=== PATIENT | female | born 1990 | race Two or more races ===

== ENCOUNTER 2020-03-07 05:04 | Inpatient (IN) | payer BC, MEDICAID ==
[2020-03-02 11:27] LABS: ABSOLUTE EOSINOPHILS # (AUTO) 0.1 10^3/uL (0.0-0.6); ABSOLUTE LYMPHOCYTES (AUTO) 1.4 10^3/uL (0.5-4.7); ABSOLUTE MONOCYTES (AUTO) 0.5 10^3/uL (0.1-1.4); ABSOLUTE NEUT (AUTO) 4.5 10^3/uL (1.7-8.2); BASOPHILS % (AUTO) 0.6 % (0-2); EOSINOPHILS % (AUTO) 1.3 % (0-6); HEMATOCRIT 34.1 % (36.0-47.0); HEMOGLOBIN 11.7 g/dL (12.0-15.5); LYMPHOCYTES % (AUTO) 21.5 % (13-45); MEAN CORPUSCULAR HEMOGLOBIN 30.6 pg (27.0-33.4); MEAN CORPUSCULAR HGB CONC 34.5 g/dL (32.0-36.0); MEAN CORPUSCULAR VOLUME 89 fl (80-97); PLATELET COUNT 237 10^3/uL (150-450); RED BLOOD COUNT 3.84 10^6/uL (3.72-5.28); RED CELL DISTRIBUTION WIDTH 14.6 % (11.5-14.0); SEGMENTED NEUTROPHILS % (AUTO) 69.6 % (42-78); TOTAL CELLS COUNTED % (AUTO) 100 %; WHITE BLOOD COUNT 6.4 10^3/uL (4.0-10.5)
[2020-03-02 11:50] LABS: APPEARANCE,URINE SLIGHTLY-CLOUDY; BILIRUBIN,URINE NEGATIVE (NEGATIVE); COLOR,URINE YELLOW; GLUCOSE, URINE NEGATIVE (NEGATIVE); KETONES,URINE NEGATIVE (NEGATIVE); LEUKOCYTE ESTERASE,URINE TRACE (NEGATIVE); NITRITE,URINE NEGATIVE (NEGATIVE); PROTEIN,URINE NEGATIVE (NEGATIVE); URINE SPECIFIC GRAVITY 1.021; UROBILINOGEN,URINE NEGATIVE mg/dL (<2.0)
[2020-03-02 12:04] LABS: URINE AMPHETAMINES SCREEN NEGATIVE; URINE BARBITURATES SCREEN NEGATIVE; URINE BENZODIAZEPINES SCREEN NEGATIVE; URINE COCAINE SCREEN NEGATIVE; URINE MARIJUANA (THC) SCREEN NEGATIVE; URINE METHADONE SCREEN NEGATIVE; URINE PHENCYCLIDINE SCREEN NEGATIVE
[~2020-03-07 05:04] MED LIST: CEFAZOLIN 2 GM/D5W RTU 2 GM/50 ML RTUPB IV PRN; LIDOCAINE 0.5% INJ-PF (5 MG/ML) 50 ML SDV SUBCUT PRN; RINGERS SOLUTION,LACTATED 1,500 ML IV PRN
[2020-03-07] MEDS: LACTATED RINGERS 1000 ML IV PRN ×2 (07:38→15:00)
[2020-03-07] MEDS ORDERED: NORMAL SALINE 1000 ML 1,000 ML IV ONE (08:00)
[2020-03-07] MEDS ORDERED: RINGERS SOLUTION,LACTATED 500 ML IV ONE (08:00)
[2020-03-07] MEDS ORDERED: FENTANYL CITRATE INJ/PF 100 MCG/2 ML AMPUL ONE (08:31)
[2020-03-07] MEDS ORDERED: OXYTOCIN 10 UNIT/ML VIAL ONE (08:31)
[2020-03-07] MEDS ORDERED: KETOROLAC TROMETHAMINE 60 MG/2 ML SDV ONE (08:31)
[2020-03-07] MEDS ORDERED: OXYTOCIN/0.9 % SODIUM CHLORIDE 30 UNIT/500 ML RTUINJ ONE (08:31)
[2020-03-07] MEDS ORDERED: ONDANSETRON HCL INJ/PF 4 MG/2 ML SDV ONE (08:32)
[2020-03-07] MEDS ORDERED: ACETAMINOPHEN 1,000 MG/100 ML RTUPB IV ONE (08:32)
[2020-03-07] MEDS ORDERED: BUPIVACAINE HCL 0.25 % INJ/PF (2.5 MG/1 ML) 30 ML VIAL ONE (08:41)
[2020-03-07] MEDS ORDERED: EPHEDRINE SULFATE INJ 50 MG/1 ML AMPULE ONE (09:17)
[2020-03-07] MEDS ORDERED: MORPHINE SULFATE 10 MG/ML INJ IV PRN (09:30)
[2020-03-07] MEDS ORDERED: DIPHENHYDRAMINE HCL 50 MG/ML VIAL IV PRN (09:30)
[2020-03-07] MEDS ORDERED: MEPERIDINE HCL/PF INJ 25 MG/1 ML DISP.SYRIN IV PRN (09:30)
[2020-03-07] MEDS ORDERED: PROMETHAZINE HCL INJ 25 MG/1 ML VIAL IV PRN ×2 (09:30→09:57)
[2020-03-07] MEDS ORDERED: FENTANYL CITRATE INJ/PF 100 MCG/2 ML AMPUL IV PRN ×3 (09:30)
[2020-03-07] MEDS ORDERED: MEASLES,MUMPS&RUBELLA VACC/PF 0.5 ML VIAL SUBCUT PRN (09:57)
[2020-03-07] MEDS ORDERED: ACETAMINOPHEN 1,000 MG/100 ML RTUPB IV PRN (09:57)
[2020-03-07] MEDS ORDERED: DIPH/PERTUSS(ACELL)/TETANUS VAC/PF 0.5 ML SYR (>=10YO) IM PRN (09:57)
[2020-03-07] MEDS ORDERED: ACETAMINOPHEN 325 MG TABLET PO PRN (09:57)
[2020-03-07] MEDS ORDERED: SIMETHICONE 80 MG TAB.CHEW PO PRN (09:57)
[2020-03-07] MEDS ORDERED: OXYTOCIN/0.9 % SODIUM CHLORIDE 30 UNIT/500 ML RTUINJ IV PRN (09:57)
[2020-03-07] MEDS ORDERED: RINGERS SOLUTION,LACTATED 1,000 ML IV PRN (09:57)
[2020-03-07] MEDS ORDERED: OXYCODONE-ACETAMINOPHEN 5-325 MG TABLET PO PRN (09:57)
--- NOTE | 2020-03-07 10:03 | Operative Report ---
Operative Report DATE OF SURGERY: 03/07/20 PREOPERATIVE DIAGNOSIS: Scheduled repeat with tubal ligation using Fi lshie clips POSTOPERATIVE DIAGNOSIS: Same OPERATION: Repeat via low transverse uterine incision and tubal ligation using Filshie clips SURGEON: DELL FIERRO ANESTHESIA: Spinal TISSUE REMOVED OR ALTERED: Placenta and fallopian tubes COMPLICATIONS: None ESTIMATED BLOOD LOSS: 400 cc INTRAOPERATIVE FINDINGS: Viable crying at delivery. Normal uterus tubes and ovaries. PROCEDURE: Patient was taken to the OR and placed in supine position after her spinal anesthesia. She is prepared and draped in sterile fashion. Goldstein was placed for drainage of the bladder. Low transverse incision was made and carried down the level of the fascia. The fascial incision was made with knife and extended bilaterally with curved West scissors. The fascia was off the rectus muscles using sharp and blunt dissection. The rectus muscles are in the midline. The peritoneum was entered without incident. Bladder blade was placed in uterine segment was identified. A low transverse incision was made creating a bladder flap. Bladder blade was placed low transverse uterine incision was made with the knife and extended with fingertips. The baby was delivered with some fundal pressure. Mouth and nose were suctioned free. The cord is doubly clamped and cut. Baby is passed off to the measurement superintendent in attendance. The placenta was manually extracted with trailing membranes. The uterus was externalized wrapped in a moist lap sponge. Uterine contents wiped free. Uterus was closed with a running locking layer of 0 chromic suture using the second layer to imbricate the first completing a double layer closure of the uterus. The serosa was closed with a running 2-0 chromic stitch. Each fallopian tube was identified by its fimbriated end and then a Filshie clip was placed across the mid isthmic portion of each tube. The pelvis was irrigated and suctioned free of fluid the uterus was replaced in the abdomen. The abdominal wall peritoneum was closed with running 2-0 chromic stitch. Fascia was closed with a running 0 Vicryl in 2 segments. Kaycee's layer was brought together with 0 plain gut stitch and the skin was closed with running subcuticular 4-0 undyed Vicryl stitch. The wound was dressed mother and baby did well.
--- NOTE | 2020-03-07 10:56 | Warning Signs in Babies ---
VOD Warning Signs Datetime Report Generated by [facility]: 03/07/2020 10:56 VOD#608 -Warning Signs in Babies: Needs to be viewed. (03/07/2020 09:29:Shena Genao RN)
[2020-03-07] MEDS ORDERED: OXYCODONE-ACETAMINOPHEN 5-325 MG TABLET ONE (11:15)
[2020-03-07] MEDS: OXYCODONE-ACETAMINOPHEN 5-325 MG TABLET PO PRN ×2 (11:17→20:52)
--- NOTE | 2020-03-07 12:16 | Delivery Summary ---
Del Sum A-C Datetime Report Generated by [facility]: 03/07/2020 12:16 DELIVERY PERSONNEL DELIVERY PERSONNEL: [id number] Delivery Doctor:: Masoud Novak MD SCREW MACHINE SET UP OPERATOR TOOL:: Marilyn Roth CRNA Certified Bench Jeweler Technician:: Shena Genao RN Nursery Nurse:: Alexandria Vail RN Nursery Nurse:: Lesa Santoro RN Supervisor Electrolytic Tinning/VOUCHER CLERK: Shani Laguerre CST Supervisor Electrolytic Tinning/VOUCHER CLERK: Sandra Baeza, JACQUARD LOOM WEAVER MATERNAL INFORMATION Delivery Anesthesia: Spinal Medications After Delivery: Pitocin 30 Units in 500ml NS/D5W; Pitocin Drip 20 Units/1000ml NSS Maternal Complications: None LABOR SUMMARY EDC: 03/12/2020 00:00 Attempted: No Labor Anesthesia: None LABOR INFORMATION Reason for Induction: Not Applicable Other Ripening Agents: Oxytocin: N/A Group B Beta Strep: Negative Steroids Given: None Reason Steroids Not Administered: Not Applicable Other Reason Not Administered: MEMBRANES Membranes Rupture Method: Artificial Rupture of Membranes: 03/07/2020 09:16 Length of Rupture (hr): 0.02 Amniotic Fluid Color: Clear Amniotic Fluid Amount: Moderate STAGES OF LABOR Stage 3 hr: 0 Stage 3 min: 0 VAGINAL DELIVERY Episiotomy: None Laceration #1: None Laceration Extension #1: N/A Sponge Count Correct: N/A Sharps Count Correct: N/A CSECTION DELIVERY Primary Indication: Repeat Elective Other Primary Indication: with BTL CSection Urgency: Scheduled CSection Incidence: Repeat Labor: N/A Elective: Elective CSection Incision: Lower Uterine Transverse Other Sterilization Procedure: Foshie Clips BABY A INFORMATION Infant Delivery Date/Time: 03/07/2020 09:17 Method of Delivery: Nurse Controlled Delivery: No Born in Route : No : N/A Forceps: N/A Vacuum Extraction: N/A Shoulder Dystocia : No PRESENTATION/POSITION BABY A Presentation: Cephalic Cephalic Presentation: Vertex Breech Presentation: N/A PLACENTA INFORMATION BABY A Placenta Delivery Time : 03/07/2020 09:17 Placenta Method of Delivery: Manual Removal Placenta Status: Delivered SCORES BABY A Heart Rate 1 min: >100 bpm Resp Effort 1 min: Good Cry Reflex Irritability 1 min: Cough or Sneeze or Pulls Away Muscle Tone 1 min: Active Motion Color 1 min: Blue/Pale SCORE 1 MIN: 8 Heart Rate 5 min: >100 bpm Resp Effort 5 min: Good Cry Reflex Irritability 5 min: Cough or Sneeze or Pulls Away Muscle Tone 5 min: Active Motion Color 5 min: Body [place], Extremities Blue SCORE 5 MIN: 9 INFORMATION BABY A Gestational Age at Delivery: 39.2 Gestational Status: Full Term- 39- 40.6 Weeks Outcome : Liveborn Condition : Stable Sex: Female IDENTIFICATION BABY A Infant Verification Date/Time: 03/07/2020 09:29 ID Band Number: [id number] Mother's Name Verified: Yes RN Verifying Infant: Amber RN Additional Verifying Personnel: CHARLES Núñez WEIGHT/LENGTH BABY A Infant Birthweight (gm): 3530 Weight (lb): 7 Weight (oz): 13 Length (in): 18.50 Infant Length (cm): 46.99 CORD INFORMATION BABY A No. Cord Vessels: 3 Nuchal Cord : Around Neck x1, Tight Cord Blood Taken: Yes-For Storage (Mom's Blood type +) Suction: None ASSESSMENT BABY A Skin to Skin: Yes Skin to Skin Time (min): 20 BABY B INFORMATION : N/A Forceps : N/A Vacuum Extraction: N/A
--- NOTE | 2020-03-07 12:16 | Birth Certificate Data ---
Cert Data Datetime Report Generated by [facility]: 03/07/2020 12:16 CERTIFICATE DATA 47a. Care: Yes (03/07/2020 11:25:Rosaura Beltrán RN) 47b. Date of First Visit: 08/23/2019 00:00 (03/07/2020 11:25:Rosaura Beltrán RN) 47c. Date of Last Visit: 03/02/2020 00:00 (03/07/2020 11:25:Rosaura Beltrán RN) 47d. Number of Visits: 11 (03/07/2020 11:25:Rosaura Beltrán RN) 48a. Number of Prev Live Births: 2 (03/07/2020 11:25:Rosaura Beltrán RN) 48b. Now Livin (03/07/2020 11:25:Rosaura Beltrán RN) 48c. Live Births Now : 0 (03/07/2020 11:25:QS system process) 48d. Date of Last Live : 07/20/2013 00:00 (03/07/2020 11:25:Rosaura Beltrán RN) 48e. Losses: 0 (03/07/2020 11:25:Rosaura Beltrán RN) RISK FACTORS IN THIS 49a. Diabetes: No (03/07/2020 11:25:Rosaura Beltrán RN) 49b. Hypertension: No (03/07/2020 11:25:Rosaura Beltrán RN) 49c. Previous Births: 0 (03/07/2020 11:25:Rosaura Beltrán RN) 49d. Stillborns: No (03/07/2020 11:25:Rosaura Beltrán RN) 49d. IUGR: No (03/07/2020 11:25:Rosaura Beltrán RN) 49e. Infertility Treatment: No (03/07/2020 11:25:Rosaura Beltrán RN) 49f. Previous Cesareans: 2 (03/07/2020 11:25:Rosaura Beltrán RN) Mother's Height 50b. Height Inches: 62 (03/07/2020 06:22:QS system process) Mother's Weight 51a. Pre- Weight (lbs): 168 (03/07/2020 11:25:Rosaura Beltrán RN) 51b. Weight at Delivery (lbs): 196 (03/07/2020 06:22:QS system process) 52. Dt Last Normal Menses Began: 06/06/2019 00:00 (03/07/2020 11:25:Rosaura Beltrán RN) Infections Present/Treated 53a. Gonorrhea: No (03/07/2020 11:25:Rosaura Beltrán RN) 53b. Syphilis: No (03/07/2020 11:25:Rosaura Beltrán RN) 53c. Chlamydia: No (03/07/2020 11:25:Rosaura Beltrán RN) 53d. Hepatitis B: No (03/07/2020 11:25:Rosaura Beltrán RN) Results this Hospital Visit: Negative (03/07/2020 11:25:Rosaura Beltrán RN) 53h. Mother Tested for HBsAG: Yes (03/07/2020 11:25:Rosaura Beltrán RN) 53i. Date Tested: 08/23/2019 00:00 (03/07/2020 11:25:Rosaura Beltrán RN) 53j. Test Result: Negative (03/07/2020 11:25:Rosaura Beltrán RN) Obstetric Procedures 54a, b, c. Obstetric Procedures: Ultrasound (03/07/2020 11:25:Rosaura Beltrán RN) Cigarette Smoking 55a. 3 Months Before Preg - Ci (03/07/2020 11:25:Rosaura Beltrán RN) 55a. Packs: 0 (03/07/2020 11:25:Rosaura Beltrán RN) 55b. 1st Trimester of Preg- Ci (03/07/2020 11:25:Rosaura Beltrán RN) 55b. Packs: 0 (03/07/2020 11:25:Rosaura Beltrán RN) 55c. 2nd Trimester of Preg- Ci (03/07/2020 11:25:Rosaura Beltrán RN) 55c. Packs: 0 (03/07/2020 11:25:Rosaura Beltrán RN) 55d. 3rd Trimester of Preg- Ci (03/07/2020 11:25:Rosaura Beltrán RN) 55d. Packs: 0 (03/07/2020 11:25:Rosaura Beltrán RN) Onset of Labor 56a. PROM >12 Hrs: 0.02 (03/07/2020 09:29:QS system process) 57a. Induction of Labor: N/A (03/07/2020 11:25:Rosaura Beltrán RN) 57a. Induction of Labor: (03/07/2020 11:25:Rosaura Beltrán RN) 57b. Augmentation of Labor: None (03/07/2020 11:25:Rosaura Beltrán RN) 57c. Non-Vertex Presentation A: Vertex (03/07/2020 11:25:Rosaura Beltrán RN) 57d. Steroids - Lung Mat: None (03/07/2020 11:25:Rosaura Beltrán RN) 57d. Steroids - Lung Mat: Not Applicable (03/07/2020 09:29:Shena Genao RN) 57d. Steroids - Lung Mat: (03/07/2020 11:25:Rosaura Beltrán RN) 57e. Antibiotics During Labor: No (03/07/2020 11:25:Rosaura Beltrán RN) 57g. Moderate/Heavy Meconium: Clear (03/07/2020 11:25:Rosaura Beltrán RN) 57h. Intolerance of Labor: Repeat Elective (03/07/2020 11:25:Rosaura Beltrán RN) : with BTL (03/07/2020 09:29:Shena Genao RN) 57i. Epidural/Spinal Anesthesia: None (03/07/2020 11:25:Rosaura Beltrán RN) Method of Delivery 58a. Forceps - Unsuccessful A: N/A (03/07/2020 11:25:Rosaura Beltrán RN) 58a. Forceps - Unsuccessful B: N/A (03/07/2020 11:25:Rosaura Beltrán RN) 58b. Vacuum - Unsuccessful A: N/A (03/07/2020 11:25:Rosaura Beltrán RN) 58b. Vacuum - Unsuccessful B : N/A (03/07/2020 11:25:Rosaura Beltrán RN) 58c. Presentation at 58c. Presentation at - A : Vertex (03/07/2020 11:25:Rosaura Beltrán RN) 58c. Presentation at - A : N/A (03/07/2020 11:25:Rosaura Beltrán RN) 58c. Presentation at - A : Cephalic (03/07/2020 11:25:Rosaura Beltrán RN) Final Route and Method of Del 58d. Baby A Route/Delivery: (03/07/2020 11:25:Rosaura Beltrán RN) 58e. Trial of Labor Attempted: No (03/07/2020 09:29:Shena Genao RN) 58e. Trial of Labor Attempted A: N/A (03/07/2020 11:25:Rosaura Beltrán RN) 58e. Trial of Labor Attempted B: N/A (03/07/2020 11:25:Rosaura Beltrán RN) Maternal Morbidity 59b. 3rd or 4th Degree Lacs: None (03/07/2020 11:25:Rosaura Beltrán RN) 59b. 3rd or 4th Degree Lacs: N/A (03/07/2020 11:25:Rosaura Beltrán RN) Birthweight Baby A: 3530 (03/07/2020 09:29:Shena Genao RN) 60a. Pounds : 7 (03/07/2020 09:29:QS system process) 60b. Ounces: 13 (03/07/2020 09:29:QS system process) 61. GA at Delivery Baby A: 39.2 (03/07/2020 09:29:Shena Genao RN) : Full Term- 39- 40.6 Weeks (03/07/2020 09:29:QS system process) 62a. 5 Minute Baby A: 9 (03/07/2020 09:29:QS system process)
[2020-03-07] MEDS: HYDROMORPHONE HCL INJ/PF 2 MG/ML AMPULE IV PRN ×3 (12:44→23:26)
[2020-03-07] MEDS: PRENATAL VITAMIN W DHA CAPSULE PO SCH (16:51)
[2020-03-07] MEDS: DOCUSATE SODIUM 100 MG CAPSULE PO SCH ×2 (16:51→20:53)
[2020-03-07] MEDS: KETOROLAC TROMETHAMINE INJ/PF 30 MG/1 ML SDV IV SCH (20:52)
[2020-03-08] MEDS: KETOROLAC TROMETHAMINE INJ/PF 30 MG/1 ML SDV IV SCH ×2 (01:54→09:58)
[2020-03-08] MEDS: OXYCODONE-ACETAMINOPHEN 5-325 MG TABLET PO PRN ×4 (01:55→22:17)
[2020-03-08 07:25] LABS: HEMATOCRIT 31.8 % (36.0-47.0); HEMOGLOBIN 10.9 g/dL (12.0-15.5); MEAN CORPUSCULAR HEMOGLOBIN 30.3 pg (27.0-33.4); MEAN CORPUSCULAR HGB CONC 34.4 g/dL (32.0-36.0); MEAN CORPUSCULAR VOLUME 88 fl (80-97); PLATELET COUNT 202 10^3/uL (150-450); RED BLOOD COUNT 3.62 10^6/uL (3.72-5.28); WHITE BLOOD COUNT 7.3 10^3/uL (4.0-10.5)
[2020-03-08] MEDS: PRENATAL VITAMIN W DHA CAPSULE PO SCH (09:58)
[2020-03-08] MEDS: DOCUSATE SODIUM 100 MG CAPSULE PO SCH ×2 (09:58→18:06)
--- NOTE | 2020-03-08 10:41 | PDOC PROGRESS REPORT ---
Subjective-OB Progress Note for:: 03/08/20 Subjective: reports bleeding slowing, pain controlled with current meds. denies needs Physical Exam (OB) Vital Signs: Temp Pulse Resp BP Pulse Ox 97.9 F 64 16 101/68 96 03/08/20 08:00 03/08/20 08:00 03/08/20 08:00 03/08/20 08:00 03/08/20 07:41 Intake & Output 03/07/20 03/08/20 03/09/20 06:59 06:59 06:59 Intake Total 3700 Output Total 1650 Balance 2049 Weight 88.5 kg - Dressing Removed: Yes Incision: Dressing, Well Approximated Closure Type: opsite - Maternal Morbidity 59. Maternal Morbidity (serious complications experinced by the mother associated with labor and delivery: None of the above - Abdomen Description: Tender, Soft, Round Hernia Present: No Fundal Description: Firm, Midline Fundal Height: u/u - u/2 - Abdominal Distension: No distension - Extremities Lower extremities: Livia's sign - neg Calf: Normal, Nontender Objective-Diagnostic Laboratory: 03/08/20 07:16 03/08/20 07:16 WBC 7.3 RBC 3.62 L Hgb 10.9 L Hct 31.8 L MCV 88 MCH 30.3 MCHC 34.4 RDW 15.0 H Plt Count 202 Assessment and Plan(PN) - Time Spent with Patient Time with patient: Less than 15 minutes - Disposition Anticipated Discharge Disposition: Home, Self Care Anticipated Discharge Timeframe: within 48 hours
[2020-03-08] MEDS: IBUPROFEN 800 MG TABLET PO SCH ×2 (11:35→18:05)
[2020-03-09] MEDS: IBUPROFEN 800 MG TABLET PO SCH ×3 (00:59→12:00)
[2020-03-09] MEDS: DOCUSATE SODIUM 100 MG CAPSULE PO SCH (09:21)
[2020-03-09] MEDS: PRENATAL VITAMIN W DHA CAPSULE PO SCH (09:22)
--- NOTE | 2020-03-09 10:53 | PDOC DISCHARGE SUMMARY ---
Impression - Admit/DC Date/PCP Admission Date/Primary Care Provider: 03/07/20 05:04 Discharge Date: 03/09/20 - Discharge Diagnosis (1) Status post repeat low transverse section Is this a current diagnosis for this admission?: Yes (2) Status post tubal ligation at time of delivery, current hosp Is this a current diagnosis for this admission?: Yes - Additional Information Resuscitation Status: Full Code Discharge Diet: Regular Discharge Activity: Balance Activity w/Rest, Keep Legs Elevated, No Lifting Over 10 Pounds, No Lifting/Push/Pulling, Pelvic Rest, Slowly Increase Activity, No tub bath Prescriptions: Oxycodone HCl/Acetaminophen [Percocet 5-325 mg Tablet] 1 tab PO Q4HP PRN #30 tablet PRN Reason: For Pain Scale 3-5 Ibuprofen [Motrin 800 mg Tablet] 800 mg PO Q8HP PRN #60 tablet PRN Reason: Home Medications: No.137/Iron/Folic Acd [ Vitamin Tablet] 1 tab PO DAILY 07/15/13 Valacyclovir HCl [Valtrex 500 mg Tablet] 1 tab PO BID PRN 07/15/13 Ibuprofen [Motrin 800 mg Tablet] 800 mg PO Q8HP PRN #60 tablet 03/09/20 Oxycodone HCl/Acetaminophen [Percocet 5-325 mg Tablet] 1 tab PO Q4HP PRN #30 tablet 03/09/20 HPI Reason(s) for Admission: Ceasarean Section-Repeat Procedures: None Intrapartum Procedure(s): : Low Cervical, Transverse, Tubal Ligation Hospital Course 59. Maternal Morbidity (serious complications experinced by the mother associated with labor and delivery: None of the above Results Laboratory Results: WBC 7.3 10^3/uL (4.0-10.5) 03/08/20 07:16 RBC 3.62 10^6/uL (3.72-5.28) L 03/08/20 07:16 Hgb 10.9 g/dL (12.0-15.5) L 03/08/20 07:16 Hct 31.8 % (36.0-47.0) L 03/08/20 07:16 MCV 88 fl (80-97) 03/08/20 07:16 MCH 30.3 pg (27.0-33.4) 03/08/20 07:16 MCHC 34.4 g/dL (32.0-36.0) 03/08/20 07:16 RDW 15.0 % (11.5-14.0) H 03/08/20 07:16 Plt Count 202 10^3/uL (150-450) 03/08/20 07:16 Lymph % (Auto) 21.5 % (13-45) 03/02/20 10:32 [place] % (Auto) 7.0 % (3-13) 03/02/20 10:32 Eos % (Auto) 1.3 % (0-6) 03/02/20 10:32 Baso % (Auto) 0.6 % (0-2) 03/02/20 10:32 Absolute Neuts (auto) 4.5 10^3/uL (1.7-8.2) 03/02/20 10:32 Absolute Lymphs (auto) 1.4 10^3/uL (0.5-4.7) 03/02/20 10:32 Absolute Monos (auto) 0.5 10^3/uL (0.1-1.4) 03/02/20 10:32 Absolute Eos (auto) 0.1 10^3/uL (0.0-0.6) 03/02/20 10:32 Absolute Basos (auto) 0.0 10^3/uL (0.0-0.2) 03/02/20 10:32 Seg Neutrophils % 69.6 % (42-78) 03/02/20 10:32 Urine Color YELLOW 03/02/20 10:32 Urine Appearance SLIGHTLY-CLOUDY 03/02/20 10:32 Urine pH 6.0 (5.0-9.0) 03/02/20 10:32 Ur Specific [place] 1.021 03/02/20 10:32 Urine Protein NEGATIVE mg/dL (NEGATIVE) 03/02/20 10:32 Urine Glucose (UA) NEGATIVE mg/dL (NEGATIVE) 03/02/20 10:32 Urine Ketones NEGATIVE mg/dL (NEGATIVE) 03/02/20 10:32 Urine Blood NEGATIVE (NEGATIVE) 03/02/20 10:32 Urine Nitrite NEGATIVE (NEGATIVE) 03/02/20 10:32 Urine Bilirubin NEGATIVE (NEGATIVE) 03/02/20 10:32 Urine Urobilinogen NEGATIVE mg/dL (<2.0) 03/02/20 10:32 Ur Leukocyte Esterase TRACE (NEGATIVE) H 03/02/20 10:32 Urine WBC (Auto) 35 /HPF 03/02/20 10:32 Urine RBC (Auto) 1 /HPF 03/02/20 10:32 U Hyaline Cast (Auto) 2 /LPF 03/02/20 10:32 Urine Bacteria (Auto) 3+ /HPF 03/02/20 10:32 Squamous Epi Cells Auto 12 /HPF 03/02/20 10:32 Urine Mucus (Auto) OCC /LPF 03/02/20 10:32 Urine Ascorbic Acid 40 (NEGATIVE) H 03/02/20 10:32 Urine Opiates Screen NEGATIVE 03/02/20 10:35 Urine Methadone Screen NEGATIVE 03/02/20 10:35 Ur Barbiturates Screen NEGATIVE 03/02/20 10:35 Ur Phencyclidine Scrn NEGATIVE 03/02/20 10:35 Ur Amphetamines Screen NEGATIVE 03/02/20 10:35 U Benzodiazepines Scrn NEGATIVE 03/02/20 10:35 Urine Cocaine Screen NEGATIVE 03/02/20 10:35 U Marijuana (THC) Screen NEGATIVE 03/02/20 10:35 COVID-19 Source NASOPHARYNGEAL 03/02/20 08:57 COVID-19 (VILMA) NOT DETECTED 03/02/20 08:57 Blood Type A POSITIVE 03/06/20 08:27 Antibody Screen NEGATIVE 03/06/20 08:27 Plan Plan of Treatment: f/u as scheduled Time Spent: Less than 30 Minutes
[2020-03-09 12:41] VITALS: BP 101/68
[2020-03-10 11:08] LABS: HSV-I IGG AB <0.91 index (0.00-0.90)
== END 2020-03-09 16:20 | disposition home or self-care (01) | DRG 785 ==
LOC: 2N 05:04
PROVIDERS: ADMIT Obstetrics & Gynecology; ATTEND Obstetrics & Gynecology
PROC: 10D00Z1 Extraction of Products of Conception, Low, Open Approach (ICD-10-PCS; principal; 2020-03-07)
PROC: 0UL70CZ Occlusion of Bilateral Fallopian Tubes with Extraluminal Device, Open Approach (ICD-10-PCS; 2020-03-07)
DX: O34.211 Maternal care for low transverse scar from previous cesarean delivery (principal); N85.8 Other specified noninflammatory disorders of uterus; O69.1XX0 Labor and delivery complicated by cord around neck, with compression, not applicable or unspecified; Z30.2 Encounter for sterilization; Z3A.39 39 weeks gestation of pregnancy; Z37.0 Single live birth
CPT/HCPCS: 1961; 36415; 59025; 64486; 76942; 80307; 81001; 85025; 85027; 86695; 86696; 86850; 86900; 86901; 87635; 94760; 94799; C9803; J0131; J0690; J1170; J1885; J2405; J2550; J2590; J3010; J3490; J7030; J7120